=== PATIENT | female | born 1965 | race Caucasian/White ===

== ENCOUNTER 2020-04-29 15:50 | Emergency (ER) | payer MEDICARE ==
[~2020-04-29] VITALS: Ht 165.1 cm; Wt 95.9 kg
[2020-04-29 15:53] VITALS: Ht 165.1 cm; Wt 95.9 kg
[2020-04-29] MEDS ORDERED: LISINOPRIL10 MG PO (15:55)
[2020-04-29] MEDS ORDERED: FUROSEMIDE20 MG PO (15:55)
[2020-04-29] MEDS ORDERED: MONODOX100 MG PO (15:55)
[2020-04-29] MEDS ORDERED: ULTRAM50 MG PO (15:56)
[2020-04-29] MEDS ORDERED: SILVADENE20 GM TP (15:56)
[2020-04-29] MEDS ORDERED: BACTRIM DS TAB1 EAC1 PO (15:56)
[2020-04-29] MEDS ORDERED: VOLTAREN75 MG PO (16:42)
[2020-04-29 17:12] VITALS: BP 150/84
== END 2020-04-29 17:25 | disposition home or self-care (01) ==
LOC: D.ER 15:50
DX: L03.115 Cellulitis of right lower limb (principal); I10 Essential (primary) hypertension; Z72.0 Tobacco use